=== PATIENT | female | born 1995 | race Caucasian/White ===

== ENCOUNTER → 2016-11-17 | Outpatient (CLI) | payer OTHER ==
--- NOTE | ~2016-11-17 | US6 ---
[facility]. [facility] A Service of [facility] & [facility] RADIOLOGY TEXT RESULTS PATIENT: SUSY HAYES LOCATION: SG : [birth year] UNIT #: [id number] AGE: [address]: YANY FARLEY MD SEX: F ORDER DR: [id number] [place] [id number] O MR#: [id number] Acc #: [id number] NAME: SUSY HAYES : 1995 SEX: F STUDY DATE/TIME: 11/17/2016 11:22 UNIT: SGUS ROOM: STUDY DESCRIPTION: US Abdominal Limited Attending Physician: Yany Farley M.D. Referring Physician: Yany Farley M.D. Ordering Physician: Yany Farley M.D. Primary Care Physician: Yany Farley M.D. MEDICAL IMAGING REPORT This report is preliminary unless electronic signature is present. EXAM Right upper quadrant abdominal ultrasound INDICATIONS Constipation. Generalized abdominal bloating for the past 2 months. PROCEDURE Fuentes-scale and Doppler imaging right upper quadrant of the abdomen COMPARISON None FINDINGS Visualized portions of pancreas are unremarkable. No liver mass on submitted images. Liver measures 13.3 cm. Common duct measures 2 mm. Unremarkable gallbladder. Right kidney measures 11.4 cm. No hydronephrosis. IMPRESSION Negative right upper quadrant abdominal ultrasound. Dictated by... Alejandro Urban M.D. THIS IS AN ELECTRONICALLY VERIFIED REPORT Alejandro Urban M.D. at 11/19/2016 7:15 AM EED/to TD: 11/17/2016 20:09 JOB #: [id number] MEDICAL IMAGING REPORT Page 1 of 1
== END | disposition home or self-care (01) ==
LOC: SGUS 11:07
DX: R14.0 Abdominal distension (gaseous) (principal)
CPT/HCPCS: 76705